=== PATIENT | female | born 1975 | race Caucasian/White ===

== ENCOUNTER → 2016-06-23 | Outpatient (CLI) | payer OTHER ==
--- NOTE | 2016-06-23 09:59 | DX ---
Left Foot, Four Views June 23, 2016, 0924 Hours Indication: Pain in the sesamoids at the first metatarsophalangeal joint. Comparisons: None. Findings: A total of four sesamoids are present. They do not appear fractured. Joint spaces are relat ively well maintained. No soft tissue swelling. Impression: Normal.
== END ==
LOC: BMCIMAGING 09:25
PROVIDERS: ATTEND Podiatrist Foot & Ankle Surgery
DX: M77.42 Metatarsalgia, left foot (principal)

== ENCOUNTER 2016-07-11 09:32 | Emergency (ER) | payer OTHER ==
[2016-07-11 10:30] VITALS: BP 128/99; PULSE 69; RESP 16; TEMP 98.1; O2SAT 96
--- NOTE | 2016-07-11 11:03 | UCPHY ---
H & P Patient Type: Established Chief Complaint Nursing Narrative: "sick for 3 weeks". chest congestion and rattly breathing. Time Seen by Provider: 07/11/16 10:51 HPI/ROS: CHIEF COMPLAINT: Cough URI symptoms x3 weeks HISTORY OF PRESENT ILLNESS: 40-year-old immunocompetent female, nonsmoker, complaining of 3 weeks of productive cough, congestion, sinus pressure. No fever no chills. No nausea no vomiting. No international travel. was sick recently with similar. No nausea or vomiting. No abdominal pain. No rash. REVIEW OF SYSTEMS: A ten point review of systems was performed and is negative with the exception of the items mentioned in the HPI PAST MEDICAL & SURGICAL HISTORY: No pertinent medical or surgical history SOCIAL HISTORY: Nonsmoker PHYSICAL EXAM (Prior to examination, patient consented to physical exam, hands were washed and my usual and customary physical exam procedures followed) 1) GENERAL: Well-developed, well-nourished, alert and oriented. Appears to be in no acute distress. 2) HEAD: Normocephalic, atraumatic 3) HEENT: Pupils equal, round, reactive to light bilaterally. Sclera anicteric. Nasopharynx: Congestion, oropharynx, clear, no lesions. Ears bilaterally with normal tympanic membranes. 4) NECK: Full range of motion, no meningeal signs. No adenopathy 5) LUNGS: Clear auscultation bilaterally, no wheezes, no rhonchi, no retractions. 6) HEART: Regular rate and rhythm, no murmur, no heave, no gallop. 7) ABDOMEN: No guarding, no rebound, no focal tenderness, negative McBurney's, 8) MUSCULOSKELETAL: Moving all extremities, no focal areas of tenderness, no obvious trauma. No peripheral edema or discoloration. 9) BACK: No CVA tenderness,. 10) SKIN: No rash, no petechiae. 11) Psychiatric: Patient is oriented X 3, there is no agitation. DIFFERENTIAL DIAGNOSIS: in no particular include but limited to bronchitis, pneumonia, influenza, meningitis - Personal History LMP (Females 10-55): 8-14 Days Ago Tetanus Vaccine Date: 08/24/09 - Medical/Surgical History Hx Asthma: No Hx Chronic Respiratory Disease: No Hx Diabetes: No Hx Cardiac Disease: No Hx Renal Disease: No Hx Cirrhosis: No Hx Alcoholism: No Hx HIV/AIDS: No Hx Splenectomy or Spleen Trauma: No Other PMH: PCP mike Price at [facility] [place]. Surg : fertility. MED : depression. Flu vaccination UTD . Tetanus UTD - Family History Significant Family History: No pertinent family hx - Social History Smoking Status: Former smoker Constitutional: Initial Vital Signs Temperature (C) 36.7 C 07/11/16 10:24 Heart Rate 69 07/11/16 10:24 Respiratory Rate 16 07/11/16 10:24 Blood Pressure 128/99 H 07/11/16 10:24 O2 Sat (%) 96 07/11/16 10:24 O2 Delivery Mode Room Air Allergies/Adverse Reactions: No Known Allergies Allergy (Verified 07/11/16 10:30) Home Medications: Medication Instructions Recorded AZITHROMYCIN [Z-PACK] 500 mg PO DAILY #1 packet 07/11/16 Albuterol [Proventil Inhaler HFA 1 - 2 puffs IH Q4PRN PRN #1 mdi 07/11/16 (*)] Benzonatate [Tessalon Pearles (RX)] 200 mg PO TID PRN #15 cap 07/11/16 Hydrocodon-Acetaminophen 5-325 07/11/16 Sertraline HCl 07/11/16 Medical Decision Making ED Course/Re-evaluation: Given the longevity of the patient's symptoms I think a trial of antibiotics is indicated. I think that chest x-ray can be held at this point as she is maintain normal saturations and clear lungs bilaterally and this will more than likely not change the immediate treatment plan. Usual and customary strict return precautions provided. She feels comfortable being discharged. Departure - Departure Disposition: Home, Routine, Self-Care Clinical Impression: Upper respiratory infection Condition: Good Instructions: Upper Respiratory Infection (ED) Additional Instructions: Return to the emergency department immediately for change in breathing habits, change in voice, change in swallowing habits, change in mental status, or any other symptoms that concern you. Referrals: Shamika Barrett FNP [Primary Care Provider] - 5-7 days, call for appt. Prescriptions: Albuterol [Proventil Inhaler HFA (*)] 1 - 2 puffs IH Q4PRN PRN #1 mdi PRN Reason: Cough, Moderate Benzonatate [Tessalon Pearles (RX)] 200 mg PO TID PRN #15 cap PRN Reason: Cough, Moderate AZITHROMYCIN [Z-PACK] 500 mg PO DAILY #1 packet - PQRS PQRS Measurement: Not applicable
== END 2016-07-11 11:15 | disposition home or self-care (01) ==
LOC: CED 09:32
DX: J06.9 Acute upper respiratory infection, unspecified (principal)
CPT/HCPCS: 99214-PO; G0463-PO

== ENCOUNTER → 2016-11-04 | Outpatient (CLI) | payer OTHER | LOC: FIMAGING 11:37 | PROVIDERS: ATTEND Registered Nurse General Practice | DX: Z12.31 Encounter for screening mammogram for malignant neoplasm of breast (principal) | CPT/HCPCS: G0202 ==

== ENCOUNTER → 2018-01-31 | Outpatient (CLI) | payer OTHER | LOC: FIMAGING 08:47 | PROVIDERS: ATTEND Family Medicine | DX: Z12.31 Encounter for screening mammogram for malignant neoplasm of breast (principal) ==

== ENCOUNTER → 2018-10-22 | Outpatient (CLI) | payer OTHER | LOC: BMCIMAGING 11:25 | PROVIDERS: ATTEND Family Medicine | DX: M25.571 Pain in right ankle and joints of right foot (principal); S93.401A Sprain of unspecified ligament of right ankle, initial encounter ==